=== PATIENT | male | born 1975 | race Caucasian/White ===

== ENCOUNTER → 2020-12-10 06:54 | Outpatient (CLI) | payer OTHER, SELFPAY ==
--- NOTE | 2020-12-10 | DI.MRI.S_ITS ---
PROCEDURE: MR ANKLE RT WO CON INDICATIONS: Sprain of other ligament of right ankle, initial e TECHNIQUE: Noncontrast sagittal T1 spin echo and T2 fast spin echo with fat saturation, axial proton density fast spin echo and T2 fast spin echo with fat saturation, coronal T1 spin echo and T2 fast spin echo with fat saturation through the ankle/hindfoot. COMPARISON: None. FINDINGS: Image quality: Excellent. Bones and joints: Increased T2 signal noted in the subchondral marrow of the dorsal margin of the lateral malleolus which is nonspecific, but may represent osseous contusion. No fractures. No hindfoot coalitions. No osteochondral injuries of the talar dome. No pathologic joint effusions. Medial structures: The posterior tibialis, flexor digitorum longus, and flexor hallucis longus tendons are intact. Posterior tibialis tendon is slightly thickened with increased internal signal compatible with mild tendinosis. The posterior tibial neurovascular bundle appears normal within the tarsal tunnel, without extrinsic mass effect. The deep layer (anterior and posterior tibiotalar ligaments) and superficial layer (tibionavicular, tibiospring, and tibiocalcaneal ligaments) of the deltoid ligament appear normal. The spring ligament components (superomedial calcaneonavicular, medioplantar oblique calcaneonavicular, and inferoplantar longitudinal ligaments) are intact. Lateral structures: Small calcification noted in the midportion of the anterior talofibular ligament. The anterior talofibular ligament is slightly thickened lateral to the small ligament calcification and thinned medial to the small ligament calcification concerning for chronic partial tear. The calcaneofibular and posterior talofibular ligaments appear intact. More superiorly, the anterior and posterior tibiofibular ligaments appear intact, as is the intermalleolar ligament. The tibiofibular syndesmosis is normal in width at 2 mm or less. The peroneus longus and brevis tendons are intact. Fluid noted in the peroneus longus and brevis tendon sheaths compatible with tenosynovitis. Adjacent bony peroneal tubercle and retrotrochlear prominence are normal in size. The sinus tarsi demonstrates normal fatty signal, without edema, fibrosis, or cyst formation. Visualized sinus tarsi components (cervical ligament, interosseous talocalcaneal ligament, roots of the inferior extensor retinaculum) appear normal. The calcaneonavicular and calcaneocuboid components of the bifurcate ligament appear intact. The dorsal calcaneocuboid ligament appears intact. Anterior structures: The tibialis anterior, extensor hallucis longus, and extensor digitorum longus tendons appear intact. The dorsal talonavicular ligament appears intact. Posterior and plantar structures: Achilles tendon is intact. The Achilles tendon is slightly thickened with increased internal signal compatible with mild tendinosis. Medial and lateral bands of the plantar fascia are of normal thickness. No abductor digiti quinti muscle atrophy to suggest [place] neuropathy. IMPRESSION: 1. No acute ligament tear. 2. 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 3. Mild peroneus longus and peroneus brevis tenosynovitis. 4. Mild posterior tibialis and Achilles tendinosis. 5. Focal subchondral edema involving the posterior margin of the lateral malleolus finding is nonspecific, but may reflect osseous contusion. Dictated by: Diane Neff MD, PhD on 12/10/2020 at 11:07 Approved by: Diane Neff MD, PhD on 12/11/2020 at 10:34
== END ==
PROVIDERS: Referring Provider Podiatrist; Visit Provider Podiatrist
DX: S93.491A Sprain of other ligament of right ankle, initial encounter (principal); M25.371 Other instability, right ankle; M25.571 Pain in right ankle and joints of right foot; M65.871 Other synovitis and tenosynovitis, right ankle and foot; R26.2 Difficulty in walking, not elsewhere classified
CPT/HCPCS: 73721